=== PATIENT | female | born 1975 | race Asian ===

== ENCOUNTER → 2020-09-26 | Outpatient (CLI) | payer OTHER ==
[2020-09-26 15:12] LABS: BASOPHILS % (AUTO) 1 % (0-1); EOSINOPHILS % (AUTO) 4 % (1-7); LYMPHOCYTES % (AUTO) 32 % (22-44); MEAN CORPUSCULAR HEMOGLOBIN 28.4 pg (27.0-34.8); MONOCYTES % (AUTO) 7 % (2-9); NEUTROPHILS % (AUTO) 56 % (42-75); PLATELET COUNT 291 x10^3/uL (130-400); RED BLOOD COUNT 4.37 x10^6/uL (3.82-5.3); RED CELL DISTRIBUTION WIDTH 15.4 % (9.6-15.2)
[2020-09-26 15:14] LABS: MD NO
[2020-09-26 15:21] LABS: ANION GAP 4 mmol/L (5-15); CALCIUM 8.6 mg/dL (8.5-10.1); CHLORIDE 107 mmol/L (98-107); CREATININE 0.64 mg/dL (0.55-1.02)
[2020-09-26 15:38] LABS: MICROSCOPIC NOT IND
== END | disposition home or self-care (01) ==
LOC: STAR 14:17
PROVIDERS: ATTEND Obstetrics & Gynecology Gynecology
DX: Z01.818 Encounter for other preprocedural examination (principal); N93.9 Abnormal uterine and vaginal bleeding, unspecified; N84.0 Polyp of corpus uteri
CPT/HCPCS: 36415; 80048; 81003; 84703; 85025

== ENCOUNTER → 2020-09-28 | Outpatient (CLI) | payer OTHER | END | disposition home or self-care (01) | LOC: STAR 15:22 | PROVIDERS: ATTEND Obstetrics & Gynecology Gynecology | DX: Z20.822 Contact with and (suspected) exposure to COVID-19 (principal) | CPT/HCPCS: U0003; U0005 ==

== ENCOUNTER 2020-10-02 07:02 | Day surgery (SDC) | payer OTHER ==
[~2020-10-02] VITALS: Ht 157.5 cm; Wt 63.0 kg
[~2020-10-02 07:02] MED LIST: BUPIVACAINE/PF 0.25% ONE; EPINEPHRINE 1 MG/ML, 1ML ONE; SILVER NITRATE STICK TP ONE
[2020-10-02] MEDS ORDERED: CHLORHEXIDINE 15 ML UDC PO ONE (07:30)
[2020-10-02] MEDS ORDERED: LIDOCAINE-MPF 1%, 2ML ONE (07:36)
[2020-10-02 07:45] LABS: HCG UR SG 1.032 (1.003-1.030)
[2020-10-02] MEDS ORDERED: MIDAZOLAM 1 MG/ML, 2ML IV PRN (08:00)
[2020-10-02] MEDS ORDERED: LACTATED RINGERS 1,000 ML IV SCH (08:00)
[2020-10-02] MEDS ORDERED: LIDOCAINE-MPF 1%, 2ML INFIL ONE (08:00)
[2020-10-02] MEDS ORDERED: PROMETHAZINE 25 MG/ML, 1ML IVPush PRN (08:00)
[2020-10-02] MEDS ORDERED: ALBUTEROL SULFATE 2.5 MG/3 ML NPPB PRN (08:00)
[2020-10-02] MEDS ORDERED: MEPERIDINE/PF 25MG/0.5ML IVPush PRN (08:00)
[2020-10-02] MEDS ORDERED: ACETAMINOPHEN 325 MG TABLET PO PRN (08:00)
[2020-10-02] MEDS ORDERED: HYDROmorphone 1 MG/ML, 1ML INJ IVPush PRN (08:00)
[2020-10-02] MEDS ORDERED: LABETALOL 5MG/ML, 20ML IV PRN (08:00)
[2020-10-02] MEDS ORDERED: MIDAZOLAM 1 MG/ML, 2ML ONE (08:06)
[2020-10-02] MEDS ORDERED: FENTANYL PF 100 MCG/2ML ONE ×2 (08:06→09:59)
[2020-10-02] MEDS ORDERED: LIDOCAINE-MPF 2% ,5ML ONE (09:08)
[2020-10-02] MEDS ORDERED: KETOROLAC 30 MG/1 ML ONE (09:08)
[2020-10-02] MEDS ORDERED: DEXAMETHASONE 4 MG/ML, 1ML ONE (09:08)
[2020-10-02] MEDS ORDERED: ONDANSETRON 2MG/ML, 2ML ONE (09:08)
[2020-10-02] MEDS ORDERED: PROPOFOL 10 MG/ML, 20ML ONE (09:08)
[2020-10-02] MEDS ORDERED: ACETAMINOPHEN 650 MG/20.3 ML UDC ONE (09:45)
[2020-10-02] MEDS ORDERED: OXYcodone 5 MG/5 ML ORAL.SOL UDC ONE (09:59)
[2020-10-02] MEDS: FENTANYL PF 100 MCG/2ML IV PRN ×2 (10:01→10:10)
[2020-10-02] MEDS: OXYcodone 5 MG/5 ML ORAL.SOL UDC PO PRN ×2 (10:21→11:04)
== END 2020-10-02 12:15 | disposition home or self-care (01) ==
LOC: OUT 07:02
PROVIDERS: ATTEND Obstetrics & Gynecology Gynecology
DX: N93.9 Abnormal uterine and vaginal bleeding, unspecified (principal); N84.0 Polyp of corpus uteri; F17.210 Nicotine dependence, cigarettes, uncomplicated; Z98.51 Tubal ligation status; Z82.49 Family history of ischemic heart disease and other diseases of the circulatory system; Z83.3 Family history of diabetes mellitus; Z82.3 Family history of stroke
CPT/HCPCS: 58563; 81025; 88305; J1100; J1885; J2250; J2405; J2704; J3010; J7120; J0171